=== PATIENT | female | born 1990 | race Caucasian/White ===

== ENCOUNTER 2023-08-08 21:21 | Emergency (ER) | payer OTHER ==
[~2023-08-08] VITALS: Ht 170.2 cm; Wt 74.4 kg
[~2023-08-08 21:21] MED LIST: CLEOCIN HCL300 MG PO; IBUPROFEN600 MG PO
[2023-08-08] MEDS ORDERED: LEVOFLOXACIN750 MG PO (21:50)
[2023-08-08] MEDS ORDERED: LACTOBACILLUS1 EACH PO (21:51)
[2023-08-08] MEDS ORDERED: METRONIDAZOLE500 MG PO (21:53)
[2023-08-08 22:20] LABS: BASOPHILS 0.9 % (0-2); EOSINOPHILS 2.2 % (0-6); HEMATOCRIT 39.7 % (35.0-50.0); HEMOGLOBIN 13.6 g/dL (12.0-18.0); LYMPHOCYTES 29.4 % (24-44); MCH 31.6 (27-36); MCHC 34.1 g/dl (30-36); MCV 92.5 fl (81-99); MONOCYTES 9.1 % (0-12); NEUTROPHILS 58.4 % (39-80); PLATELET COUNT 291 K/uL (140-440); RBC 4.29 M/ul (4.3-5.7)
[2023-08-08 22:34] LABS: ALBUMIN/GLOBULIN RATIO 1.25 (1.1-2.4); ANION GAP 12.9 (7-21); BILIRUBIN, TOTAL 0.5 ng/dL (0.2-1.0); CALCIUM 8.7 mg/dL (8.5-10.1); CREATININE, SERUM 0.72 mg/dL (0.55-1.02); POTASSIUM 3.9 mmol/L (3.5-5.1); PROTEIN, TOTAL 7.2 g/dL (6.4-8.2)
[2023-08-09] MEDS ORDERED: METRONIDAZOLE500 MG PO (00:50)
[2023-08-09 01:06] VITALS: BP 100/56
== END 2023-08-09 01:07 | disposition home or self-care (01) ==
LOC: ED 21:21
PROVIDERS: Internal Medicine
DX: K04.7 Periapical abscess without sinus (principal); Z86.19 Personal history of other infectious and parasitic diseases; Z88.0 Allergy status to penicillin; Z88.1 Allergy status to other antibiotic agents; Z79.899 Other long term (current) drug therapy
CPT/HCPCS: 36415; 70487; 80053; 84703; 85025; 99284-25; J1100; Q9967

== ENCOUNTER 2023-08-31 08:48 | Emergency (ER) | payer OTHER ==
[~2023-08-31 08:48] MED LIST changes: +LACTOBACILLUS1 EACH PO; +LEVOFLOXACIN750 MG PO; +METRONIDAZOLE500 MG PO
--- OUTSIDE RECORDS SUMMARY | 2023-08-31 09:02 | XMS ---
PreManage Notification: BOBBI WILOCX Security Psychiatric Social Worker Events No recent Security Events currently on file CRITERIA MET - [facility] - 2 Visits in 30 Days CARE PROVIDERS -, [place]- Dentist: Typesetters Printer [facility] PHONE: [phone] CAROL ANTONIO [facility] Current PHONE: [phone] CRISTIAN ARMSTRONG [facility] Current PHONE: Unknown Michelle Jamison Nurse Practitioner: Family Current JEWEL BEARING MAKER-C PHONE: [phone] Clement has no Care Guidelines for this patient. Francheska VISIT COUNT (12 MO.) 4 KARLA Urrutia 2 [facility] 1 [facility] 1 [facility] 1 [facility] (Luisa Moran) 1 Nav Valero . TOTAL 10 NOTE: Visits indicate total known visits. ED/UCC VISIT TRACKING (12 MO.) 08/31/2023 08:49 KARLA Garciaony [place] TYPE: Emergency COMPLAINT: - SKIN PROBLEM, DENTAL PROBLEM 08/08/2023 21:22 [facility] [place] TYPE: Emergency COMPLAINT: - FACIAL SWELLING DIAGNOSES: - Allergy status to other antibiotic agents - Allergy status to penicillin - Other moth exterminator (current) drug therapy - Periapical abscess without sinus - Personal history of other infectious and parasitic diseases 04/05/2023 09:[address] [facility] [place] TYPE: Emergency COMPLAINT: - R THUMB/ARM PAIN 04/03/2023 11:[address] [facility] [place] TYPE: Emergency COMPLAINT: - WOUND CHECK DIAGNOSES: - Allergy status to other antibiotic agents - Allergy status to penicillin - Cellulitis of right finger - Hordeolum externum left lower eyelid - Periapical abscess without sinus 04/02/2023 04:09 [facility] Carol Valdez Luisa ANDERSON (Luisa Moran) TYPE: Emergency DIAGNOSES: - Cellulitis of right finger - Cutaneous abscess of right lower limb - Insect Bite - spider bite - Thumb Pain 01/13/2023 22:07 [facility] TYPE: Emergency COMPLAINT: - Opioid dependence with withdrawal - Nausea - Constipation, unspecified DIAGNOSES: 1. Drug induced constipation 2. Adverse effect of other opioids, initial encounter 3. Opioid dependence with withdrawal 4. Encounter for screening for infections with a predominantly sexual mode of transmission 01/13/2023 09:08 [facility] TYPE: Emergency COMPLAINT: - Vomiting, unspecified - Unspecified abdominal pain - Constipation, unspecified DIAGNOSES: 1. Vomiting, unspecified 2. Opioid dependence with withdrawal 12/20/2022 05:55 [facility] [place] TYPE: Emergency COMPLAINT: - Hand Pain_HAND PAIN - PAIN IN RIGHT HAND DIAGNOSES: 0. Pain in right hand 1. Cellulitis of right upper limb 11/17/2022 05:45 [facility] TYPE: Emergency DIAGNOSES: - Procedure and treatment not carried out due to patient leaving prior to being seen by health care provider - Medical Problem (Major) 09/09/2022 02:09 [facility] [place] TYPE: Emergency DIAGNOSES: - Encounter for test, result negative - Encounter for screening, unspecified - medical issues - Test INPATIENT VISIT TRACKING (12 MO.) 04/07/2023 13:31 [facility] [place] TYPE: Medical Surgical COMPLAINT: - CELLULITIS DIAGNOSES: - Acquired absence of other organs - Acquired absence of other organs - Acquired absence of other specified parts of digestive tract - Acquired absence of other specified parts of digestive tract - Allergy status to other drugs, medicaments and biological substances - Allergy status to other drugs, medicaments and biological substances - Allergy status to penicillin - Allergy status to penicillin - Anxiety disorder, unspecified - Anxiety disorder, unspecified - Cellulitis of right finger - Cellulitis of right finger - Chest pain, unspecified - Chest pain, unspecified - Cutaneous abscess of right hand - Cutaneous abscess of right hand - Hypokalemia - Hypokalemia - Other psychoactive substance abuse, uncomplicated - Other psychoactive substance abuse, uncomplicated - Other specified abnormal findings of blood chemistry - Other specified abnormal findings of blood chemistry - Other stimulant abuse, uncomplicated - Other stimulant abuse, uncomplicated - Pain in right finger(s) - Unspecified viral hepatitis C without hepatic coma - Unspecified viral hepatitis C without hepatic coma - Urinary tract infection, site not specified - Urinary tract infection, site not specified [email or web address]
[2023-08-31] MEDS ORDERED: BACTRIM DS TAB1 EACH PO (09:03)
[2023-08-31] MEDS ORDERED: LITHIUM CARBON600 MG PO (09:04)
[2023-08-31] MEDS ORDERED: SEROQUEL50 MG PO (09:04)
[2023-08-31] MEDS ORDERED: LINEZOLID600 MG PO (10:03)
[2023-08-31 10:24] VITALS: BP 124/98
== END 2023-08-31 10:22 | disposition home or self-care (01) ==
LOC: ED 08:48
DX: L02.412 Cutaneous abscess of left axilla (principal); L02.214 Cutaneous abscess of groin; L02.31 Cutaneous abscess of buttock; Z88.0 Allergy status to penicillin; Z79.899 Other long term (current) drug therapy
CPT/HCPCS: 99283

== ENCOUNTER 2023-11-05 20:48 | Emergency (ER) | payer OTHER ==
[~2023-11-05] VITALS: Ht 170.2 cm; Wt 74.4 kg
[~2023-11-05 20:48] MED LIST changes: +BACTRIM DS TAB1 EACH PO; +IMODIUM A-1 MG/7.5 M PO; +LINEZOLID600 MG PO; +LITHIUM CARBON600 MG PO; +SEROQUEL50 MG PO
[2023-11-05] MEDS ORDERED: MELOXICAM7.5 MG PO (21:36)
[2023-11-05 21:52] VITALS: BP 125/79
--- OUTSIDE RECORDS SUMMARY | 2023-11-05 22:17 | XMS ---
PreManage Notification: BOBBI WILCOX Security Scada Technician Events No recent Security Events currently on file CRITERIA MET - [facility] - 2 Visits in 30 Days CARE PROVIDERS -[place]- Dentist: Wire Brush Operator [facility] PHONE: [phone] MARISELA [facility] Current PHONE: [phone] CRISTIAN ARMSTRONG [facility] Current PHONE: [phone] Clement has no Care Guidelines for this patient. E.D. VISIT COUNT (12 MO.) 6 KARLA Urrutia 2 [facility] 1 [facility] 1 [facility] 1 Nav [place]en[place] TOTAL 11 NOTE: Visits indicate total known visits. ED/UCC VISIT TRACKING (12 MO.) 11/05/2023 20:49 [place] TYPE: Emergency COMPLAINT: - L BARDALES PAIN 10/23/2023 20:22 [place] TYPE: Emergency COMPLAINT: - ABSCESSES DIAGNOSES: - Allergy status to other antibiotic agents - Allergy status to penicillin - Cutaneous abscess of left axilla - Hidradenitis suppurativa - Other snf (current) drug therapy 08/31/2023 08:49 [facility] [place] TYPE: Emergency COMPLAINT: - SKIN PROBLEM, DENTAL PROBLEM DIAGNOSES: - Allergy status to penicillin - Cutaneous abscess of buttock - Cutaneous abscess of groin - Cutaneous abscess of left axilla - Other snf (current) drug therapy 08/08/2023 21:[address] [facility] [address] [place] TYPE: Emergency COMPLAINT: - FACIAL SWELLING DIAGNOSES: - Allergy status to other antibiotic agents - Allergy status to penicillin - Other intermediate school teacher (current) drug therapy - Periapical abscess without sinus - Personal history of other infectious and parasitic diseases 04/05/2023 09:[address] [facility] [place] TYPE: Emergency COMPLAINT: - R THUMB/ARM PAIN 04/03/2023 11:16 KARLA Pearson TYPE: Emergency COMPLAINT: - WOUND CHECK DIAGNOSES: - Allergy status to other antibiotic agents - Allergy status to penicillin - Cellulitis of right finger - Hordeolum externum left lower eyelid - Periapical abscess without sinus 04/02/2023 04:09 [facility] TYPE: Emergency DIAGNOSES: - Cellulitis of right finger - Cutaneous abscess of right lower limb - Insect Bite - spider bite - Thumb Pain 01/13/2023 22:07 [facility] TYPE: Emergency COMPLAINT: - Constipation, unspecified - Nausea - Opioid dependence with withdrawal DIAGNOSES: 1. Drug induced constipation 2. Adverse effect of other opioids, initial encounter 3. Opioid dependence with withdrawal 4. Encounter for screening for infections with a predominantly sexual mode of transmission 01/13/2023 09:08 [facility] TYPE: Emergency COMPLAINT: - Constipation, unspecified - Unspecified abdominal pain - Vomiting, unspecified DIAGNOSES: 1. Vomiting, unspecified 2. Opioid dependence with withdrawal 12/20/2022 05:55 [facility] [place] TYPE: Emergency COMPLAINT: - Hand Pain_HAND PAIN - PAIN IN RIGHT HAND DIAGNOSES: 0. Pain in right hand 1. Cellulitis of right upper limb 11/17/2022 05:45 [facility] TYPE: Emergency DIAGNOSES: - Procedure and treatment not carried out due to patient leaving prior to being seen by health care provider - Medical Problem (Major) INPATIENT VISIT TRACKING (12 MO.) 04/07/2023 13:[address] [facility] [place] TYPE: Medical Surgical COMPLAINT: - CELLULITIS [...] - Urinary tract infection, site not specified [email or web address]
== END 2023-11-05 21:53 | disposition home or self-care (01) ==
LOC: ED 20:48
DX: S80.12XA Contusion of left lower leg, initial encounter (principal); W22.8XXA Striking against or struck by other objects, initial encounter; Z88.0 Allergy status to penicillin; Z88.8 Allergy status to other drugs, medicaments and biological substances; Z79.899 Other long term (current) drug therapy
CPT/HCPCS: 73590; 99283-25

== ENCOUNTER 2024-07-13 13:28 | Emergency (ER) | payer OTHER ==
[~2024-07-13] VITALS: Ht 170.2 cm; Wt 89.6 kg
[~2024-07-13 13:28] MED LIST changes: +MELOXICAM7.5 MG PO
[2024-07-13 14:43] VITALS: BP 112/73
== END 2024-07-13 14:43 | disposition home or self-care (01) ==
LOC: ED 13:28
DX: M19.011 Primary osteoarthritis, right shoulder (principal); Z88.0 Allergy status to penicillin; Z88.1 Allergy status to other antibiotic agents; Z79.1 Long term (current) use of non-steroidal anti-inflammatories (NSAID); Z79.2 Long term (current) use of antibiotics; Z79.899 Other long term (current) drug therapy
CPT/HCPCS: 73030; 99283